=== PATIENT | female | born 1980 | race Two or more races ===

== ENCOUNTER 2017-09-19 07:55 | Emergency (ER) | payer SELFPAY ==
[~2017-09-19] VITALS: Ht 167.6 cm; Wt 81.6 kg
[2017-09-19 08:06] VITALS: BP 127/87
[2017-09-19] MEDS ORDERED: FLUORESCEIN OPHTH TEST STRIP. OD ONE (08:30)
--- NOTE | 2017-09-19 08:32 | PHYS DOC ---
Past Medical History Past Medical History: No Pertinent History Past Surgical History: Alcohol Use: None Drug Use: None Adult General Chief Complaint Chief Complaint: EYE PROBLEMS HPI HPI Patient is a 37 year old female presents to the ED complaining of right eye irritation x 1 hour. States she was washing her face with john exfoliant, got some in her eye and now feels like something is in there. Describes the pain as burning, rates the pain as 7/10. Patient also wears contacts. States she rinsed her eye at home with minimal improvement. Denies fever, n/v, vision changes, headache or rash. Review of Systems Review of Systems Constitutional: Denies fever or chills [] Eyes: COMPLAINS OF RIGHT EYE REDNESS. Denies change in visual acuity. [] HENT: Denies nasal congestion or sore throat [] Respiratory: Denies cough or shortness of breath [] Cardiovascular: No additional information not addressed in HPI [] GI: Denies abdominal pain, nausea, vomiting, bloody stools or diarrhea [] : Denies dysuria or hematuria [] Musculoskeletal: Denies back pain or joint pain [] Integument: Denies rash or skin lesions [] Neurologic: Denies headache, focal weakness or sensory changes [] Endocrine: Denies polyuria or polydipsia [] All other systems were reviewed and found to be within normal limits, except as documented in this note. Current Medications Current Medications Current Medications Medications (Trade) Dose Ordered Sig/Yvette Start Time Stop Time Status Last Admin Dose Admin Acetaminophen/ Hydrocodone Bitart (Lortab 5/325) 1 tab 1X ONCE 09/19/17 09:00 09/19/17 09:01 DC 09/19/17 08:55 1 TAB Diphtheria/ Tetanus/Acell Pertussis (Boostrix) 0.5 ml ONCE ONCE 09/19/17 09:00 09/19/17 09:01 DC 09/19/17 08:56 0.5 ML Fluorescein Sodium (Ful-Ambika) 1 strip 1X ONCE 09/19/17 08:30 09/19/17 08:31 DC 09/19/17 08:40 1 STRIP Tetracaine HCl (Tetracaine) 1 drop 1X ONCE 09/19/17 09:00 09/19/17 09:01 DC 09/19/17 08:40 1 DROP Allergies Allergies Allergies Coded Allergies Type Severity Reaction Last Updated Verified No Known Drug Allergies 09/19/17 No Physical Exam Physical Exam Constitutional: Well developed, well nourished, no acute distress, non-toxic appearance. [] HENT: Normocephalic, atraumatic, bilateral external ears normal, oropharynx moist, no oral exudates, nose normal. [] Eyes: PERRLA, EOMI, MILD RIGHT CONJUNCTIVAL INJECTION. CORNEAL ABRASION TO RIGHT EYE. no discharge. [] Neck: Normal range of motion, no tenderness, supple, no stridor. [] Cardiovascular:Heart rate regular rhythm, no murmur [] Lungs & Thorax: Bilateral breath sounds clear to auscultation [] Abdomen: Bowel sounds normal, soft, no tenderness, no masses, no pulsatile masses. [] Skin: Warm, dry, no erythema, no rash. [] Back: No tenderness, no CVA tenderness. [] Extremities: No tenderness, no cyanosis, no clubbing, ROM intact, no edema. [] Neurologic: Alert and oriented X 3, normal motor function, normal sensory function, no focal deficits noted. [] Psychologic: Affect normal, judgement normal, mood normal. [] Current Patient Data Vital Signs Vital Signs Date Time Temp Pulse Resp B/P (MAP) Pulse Ox O2 Delivery O2 Flow Rate FiO2 09/19/17 08:06 98.5 70 16 97 Room Air 98.5 EKG EKG [] Radiology/Procedures Radiology/Procedures [] Course & Med Decision Making Course & Med Decision Making Pertinent Labs and Imaging studies reviewed. (See chart for details) []Corneal abrasion seen on fluorescein stain exam. Patient's pain relieved with tetracaine drops used in ED. Visual acuity WNL. Discussed abstaining from using contacts. Will prescribe Cipro drops which cover for pseudomonas outpatient. Tetanus updated. Discussed symptomatic treatment. Discussed follow-up with ophthalmology early next week. Provided contact information/education. Discussed reasons to return to the ED. Patient understands and agrees with plan. Family at bedside. Dragon Disclaimer Meliaon Disclaimer This electronic medical record was generated, in whole or in part, using a voice recognition dictation system. Departure Departure Impression: Primary Impression: Corneal abrasion Disposition: 01 HOME, SELF-CARE Condition: IMPROVED Referrals: JOSE DERAS MD Patient Instructions: Eye - Corneal Abrasion Scripts Hydrocodone/Apap 5-325 (NORCO 5-325 TABLET) 1 Each Tablet 1 TAB PO TID, #6 TAB Prov: TIFFANI VALDES 09/19/17 Ciprofloxacin Hcl (CIPROFLOXACIN HCL) 2.5 Ml Drops 1 DROP EACHEYE QID, #5 ML Prov: TIFFANI VALDES 09/19/17 Eye Procedure Eye Procedure : Alcaine Drops Administered: Yes Progress right eye irrigated for 15 minutes. Fluorescein dye stain performed. Corneal abrasion seen. No foreign body. visual aquity WNL. TIFFANI VALDES Sep 19, 2017 08:32
[2017-09-19] MEDS ORDERED: CIPR2.5D EACHEYE (08:45)
[2017-09-19] MEDS ORDERED: HYDR-971 PO (08:59)
[2017-09-19] MEDS ORDERED: DIPHTH,PERTUSS(ACELL),TET TOX 0.5 ML DISP.SYRIN. VAX IM ONE (09:00)
[2017-09-19] MEDS ORDERED: HYDROcodone/APAP 5/325MG 1 TAB TABLET PO ONE (09:00)
[2017-09-19] MEDS ORDERED: TETRACAINE 0.5% OPHTH SOLUTION 4ML BOTTLE. OD ONE (09:00)
== END 2017-09-19 09:02 | disposition home or self-care (01) ==
LOC: ER 07:55
DX: S05.01XA Injury of conjunctiva and corneal abrasion without foreign body, right eye, initial encounter (principal); X58.XXXA Exposure to other specified factors, initial encounter; Y93.89 Activity, other specified; Y99.8 Other external cause status; Y92.89 Other specified places as the place of occurrence of the external cause
CPT/HCPCS: 90471; 90715; 99283-25